=== PATIENT | male | born 1980 | race Two or more races ===

== ENCOUNTER → 2016-11-26 | Outpatient (REF) | payer OTHER ==
[2016-11-26 19:01] LABS: ALBUMIN 4.2 GM/DL (3.2-5.2); ALBUMIN/GLOBULIN RATIO 1.27 (1.00-1.93); ALKALINE PHOSPHATASE 60 U/L (45-117); ALT/SGPT 20 U/L (12-78); ANION GAP 5 MEQ/L (8-16); AST/SGOT 14 U/L (15-37); BILIRUBIN,TOTAL 0.5 MG/DL (0.2-1.0); BLOOD UREA NITROGEN 14 MG/DL (7-18); CARBON DIOXIDE LEVEL 28 MEQ/L (21-32); CHLORIDE LEVEL 107 MEQ/L (98-107); CHOLESTEROL LEVEL 246 MG/DL (<200); CREATININE FOR GFR 0.86 MG/DL (0.70-1.30); GLOMERULAR FILTRATION RATE > 60.0 (>60); GLUCOSE, FASTING 86 MG/DL (70-105); POTASSIUM SERUM 4.5 MEQ/L (3.5-5.1); SODIUM LEVEL 140 MEQ/L (136-145); TOTAL PROTEIN 7.5 GM/DL (6.4-8.2); TRIGLYCERIDES LEVEL 151 MG/DL (<150)
== END ==
LOC: M SFHCCLAY 11:17
PROVIDERS: ATTEND Family Medicine
DX: Z13.220 Encounter for screening for lipoid disorders (principal)

== ENCOUNTER 2017-12-10 21:32 | Emergency (ER) | payer BC, OTHER ==
[2017-12-10] MEDS: AUGMENTIN 875 MG TAB PO (00:13)
[2017-12-10] MEDS: KETOROLAC TROMETHAMINE 10 MG TAB PO (00:13)
[2017-12-10] MEDS: METOCLOPRAMIDE 5 MG TAB PO (00:13)
== END 2017-12-11 00:20 | disposition home or self-care (01) ==
LOC: M ED 12-11 00:20
DX: J01.90 Acute sinusitis, unspecified (principal); F17.200 Nicotine dependence, unspecified, uncomplicated; Z98.890 Other specified postprocedural states
CPT/HCPCS: 99283

== ENCOUNTER 2018-01-09 07:37 | Emergency (ER) | payer BC, OTHER ==
[2018-01-09] MEDS: KETOROLAC 30 MG/ML VIAL (J1885) IV (08:21)
== END 2018-01-09 09:40 | disposition home or self-care (01) ==
LOC: M ED 07:37
DX: M94.0 Chondrocostal junction syndrome [Tietze] (principal); E78.5 Hyperlipidemia, unspecified; F90.9 Attention-deficit hyperactivity disorder, unspecified type; Z72.0 Tobacco use; F12.10 Cannabis abuse, uncomplicated
CPT/HCPCS: J1885

== ENCOUNTER 2018-01-18 13:15 | Emergency (ER) | payer BC, SELFPAY ==
[2018-01-18] MEDS: KETOROLAC TROMETHAMINE 10 MG TAB PO (15:17)
== END 2018-01-18 16:35 | disposition home or self-care (01) ==
LOC: M ED 13:15
DX: S46.011A Strain of muscle(s) and tendon(s) of the rotator cuff of right shoulder, initial encounter (principal); X50.0XXA Overexertion from strenuous movement or load, initial encounter; Y92.9 Unspecified place or not applicable; Y93.9 Activity, unspecified; Y99.9 Unspecified external cause status; M54.9 Dorsalgia, unspecified; Z72.0 Tobacco use; F12.10 Cannabis abuse, uncomplicated
CPT/HCPCS: 71101

== ENCOUNTER 2018-08-10 19:09 | Emergency (ER) | payer BC, MEDICAID, OTHER, SELFPAY ==
[~2018-08-10] VITALS: Ht 177.8 cm; Wt 63.6 kg
[2018-08-10 19:09] VITALS: BP 104/60
[~2018-08-10 19:09] MED LIST: AUGM875T28 PO; BACL10TA2 PO; IBUP-1022 PO; NAPR-49 PO; NORCOTAB PO; ROBA500T PO
--- NOTE | 2018-08-10 20:00 | REP ---
Clinical: Trauma. Technique: AP and axial views of the right clavicle. Findings: Clavicle is intact without acute fracture. Acromioclavicular and sternoclavicular joints appear stable at surrounding soft tissues are unremarkable. Impression: Normal clavicle. No fracture. Electronically Signed by Wolf Long MD 08/10/2018 07:53 P
--- NOTE | 2018-08-10 20:02 | REP ---
Clinical: Right shoulder trauma . Technique: Internal rotation, external rotation, and Y view. Findings: No acute fracture or dislocation. The acromioclavicular and glenohumeral joints are intact. No periarticular calcifications or degenerative changes are appreciated. Sub acromial space is normal. Surrounding soft tissues are unremarkable. Impression: Normal right shoulder radiographs. No acute fracture or dislocation. Electronically Signed by Wolf Long MD 08/10/2018 07:54 P
[2018-08-10] MEDS ORDERED: CYCL10TA PO (20:14)
[2018-08-10] MEDS ORDERED: ACETAMINOPHEN 325 MG TAB PO ONE (20:15)
[2018-08-10] MEDS ORDERED: CYCLOBENZAPRINE 10 MG TAB PO ONE (20:15)
== END 2018-08-10 20:20 | disposition home or self-care (01) ==
LOC: M ED 19:09
DX: S40.011A Contusion of right shoulder, initial encounter (principal); W00.0XXA Fall on same level due to ice and snow, initial encounter; Y92.018 Other place in single-family (private) house as the place of occurrence of the external cause; F17.210 Nicotine dependence, cigarettes, uncomplicated

== ENCOUNTER 2018-09-11 11:38 | Emergency (ER) | payer MEDICAID ==
[~2018-09-11] VITALS: Ht 177.8 cm; Wt 56.2 kg
[~2018-09-11 11:38] MED LIST changes: +CYCL10TA PO; -NAPR-49 PO; +NAPR-50 PO
--- NOTE | 2018-09-11 12:35 | REP ---
Left knee series: Five views. History: Pain. Findings: Five views of the left knee demonstrate prominent clothing artifact over the distal thigh. Bones, joints, and soft tissues are otherwise unremarkable. Impression: Prominent clothing artifact distal thigh. Otherwise negative left knee radiographs. Electronically Signed by Jose Hogan MD 09/11/2018 12:27 P
[2018-09-11 14:36] VITALS: BP 103/60
== END 2018-09-11 15:11 | disposition home or self-care (01) ==
LOC: M ED 11:38
DX: M25.562 Pain in left knee (principal); F17.210 Nicotine dependence, cigarettes, uncomplicated

== ENCOUNTER 2018-09-18 06:09 | Emergency (ER) | payer BC, MEDICAID ==
[~2018-09-18] VITALS: Ht 177.8 cm; Wt 61.4 kg
[2018-09-18 06:13] VITALS: BP 122/73
== END 2018-09-18 06:44 | disposition home or self-care (01) ==
LOC: M ED 06:09
DX: M25.562 Pain in left knee (principal); F17.210 Nicotine dependence, cigarettes, uncomplicated